=== PATIENT | male | born 1990 | race Caucasian/White ===

== ENCOUNTER 2019-07-09 01:06 | Emergency (ER) | payer SELFPAY ==
[~2019-07-09] VITALS: Ht 182.9 cm; Wt 100.0 kg
[2019-07-09 01:13] VITALS: Ht 182.9 cm; Wt 100.0 kg
[2019-07-09] MEDS ORDERED: TAMIFLU75 MG PO (03:13)
[2019-07-09 03:56] VITALS: BP 111/64
[2019-07-13 18:08] LABS: AEROBE ID Final report (())
== END 2019-07-09 03:56 | disposition home or self-care (01) ==
LOC: D.ER 01:06
PROVIDERS: Family Medicine
DX: J11.1 Influenza due to unidentified influenza virus with other respiratory manifestations (principal); Z72.0 Tobacco use

== ENCOUNTER 2019-08-14 15:20 | Emergency (ER) | payer MEDICAID ==
[~2019-08-14] VITALS: Ht 182.9 cm; Wt 95.5 kg
[~2019-08-14 15:20] MED LIST: TAMIFLU75 MG PO
[2019-08-14 15:25] VITALS: Ht 182.9 cm; Wt 95.5 kg
[2019-08-14] MEDS ORDERED: HYDROCODON-ACE1 EAC2 PO (16:19)
[2019-08-14 16:48] VITALS: BP 125/79
== END 2019-08-14 16:48 | disposition home or self-care (01) ==
LOC: D.ER 15:20
DX: S62.324A Displaced fracture of shaft of fourth metacarpal bone, right hand, initial encounter for closed fracture (principal); X50.1XXA Overexertion from prolonged static or awkward postures, initial encounter; Y93.9 Activity, unspecified; Y92.9 Unspecified place or not applicable

== ENCOUNTER 2019-11-19 10:23 | Emergency (ER) | payer OTHER ==
[~2019-11-19] VITALS: Ht 182.9 cm; Wt 90.9 kg
[~2019-11-19 10:23] MED LIST changes: +HYDROCODON-ACE1 EAC2 PO
[2019-11-19 10:28] VITALS: Ht 182.9 cm; Wt 90.9 kg
[2019-11-19 11:30] VITALS: BP 139/80
== END 2019-11-19 11:30 | disposition home or self-care (01) ==
LOC: D.ER 10:23
DX: S16.1XXA Strain of muscle, fascia and tendon at neck level, initial encounter (principal); M50.30 Other cervical disc degeneration, unspecified cervical region; S09.90XA Unspecified injury of head, initial encounter; X58.XXXA Exposure to other specified factors, initial encounter; Y93.9 Activity, unspecified; W19.XXXA Unspecified fall, initial encounter; Y92.9 Unspecified place or not applicable; R11.10 Vomiting, unspecified

== ENCOUNTER 2020-01-02 14:42 | Emergency (ER) | payer OTHER ==
[~2020-01-02] VITALS: Ht 182.9 cm; Wt 102.3 kg
[2020-01-02 14:46] VITALS: BP 139/90; Ht 182.9 cm; Wt 102.3 kg
[2020-01-02 15:21] LABS: BASOPHILS 0.6 % (0-2); EOSINOPHILS 1.9 % (0-7); IMMATURE GRANULOCYTES 0.4 % (0-5); LYMPHOCYTES 27.5 % (15-50); MCH 30.5 pg (26.0-34.0); MCHC 34.1 g/dL (31.0-37.0); MCV 89.4 fL (80.0-100.0); MEAN PLATELET VOLUME 10.1 fL (7.4-10.4); MONOCYTES 5.3 % (2-11); NEUTROPHILS 64.3 % (40-80); PLATELET COUNT 233 10x3/uL (130-400); RBC 4.92 10x6/uL (4.20-6.10); RDW 13.1 % (11.5-14.5); WBC 9.1 10x3/uL (4.8-10.8)
[2020-01-02 15:29] LABS: INR 1.04 (0.85-1.17); PROTIME 13.6 SECONDS (11.6-15.0)
[2020-01-02 15:30] LABS: APTT 33.4 SECONDS (22.8-39.4); CALC OSMOLALITY 281 mosm/kg (275-300); CALCIUM 8.7 mg/dL (8.5-10.1); CARBON DIOXIDE 26.4 mmol/L (21.0-32.0); CHLORIDE - SERUM 104 mmol/L (98-107); GLUCOSE 125 mg/dL (74-106); POTASSIUM - SERUM 3.4 mmol/L (3.5-5.1); SODIUM 141 mmol/L (136-145); UREA NITROGEN 12 mg/dL (7-18); eGFR NON AFRICAN AMERICAN > 90 mL/min (90-120)
[2020-01-02 15:36] LABS: ALBUMIN 3.6 g/dL (3.4-5.0); ALKALINE PHOSPHATASE 69 U/L (30-120); ALT (SGPT) 26 U/L (10-68); AMYLASE - SERUM 41 U/L (25-115); BILIRUBIN - TOTAL 0.48 mg/dL (0.2-1.3); LIPASE 107 U/L (73-393); PROTEIN - SERUM 7.4 g/dL (6.4-8.2)
[2020-01-02 15:52] LABS: BILIRUBIN NEGATIVE (NEGATIVE); KETONE NEGATIVE (NEGATIVE); NITRITE NEGATIVE (NEGATIVE); UROBILINOGEN NORMAL (NORMAL)
[2020-01-02] MEDS ORDERED: HYDROCORTISONE30 G8 TOPICAL (17:14)
== END 2020-01-02 17:29 | disposition home or self-care (01) ==
LOC: D.ER 14:42
PROVIDERS: Family Medicine
DX: K64.4 Residual hemorrhoidal skin tags (principal); R10.9 Unspecified abdominal pain; R19.7 Diarrhea, unspecified